=== PATIENT | male | born 1965 | race Caucasian/White ===

== ENCOUNTER 2025-05-15 05:37 | Day surgery (SDC) | payer BC, OTHER ==
[2025-05-07 14:52] VITALS: BMI 29.0
[2025-05-15 12:07] VITALS: TEMP 98
[2025-05-15 12:15] VITALS: RESP 18
[2025-05-15 12:40] VITALS: BP 118/79; PULSE 70
== END 2025-05-15 12:40 | disposition home or self-care (01) ==
LOC: JASU-ENDO 05:37
PROVIDERS: ATTEND Internal Medicine Gastroenterology
PROC: 0DBL8ZX Excision of Transverse Colon, Via Natural or Artificial Opening Endoscopic, Diagnostic (ICD-10-PCS; principal; 2025-05-15 11:00)
DX: Z12.11 Encounter for screening for malignant neoplasm of colon (principal); D12.3 Benign neoplasm of transverse colon; K64.8 Other hemorrhoids
CPT/HCPCS: 82962; 88305-TC